=== PATIENT | female | born 1985 | race Caucasian/White ===

== ENCOUNTER 2019-08-13 12:13 | Emergency (ER) | payer OTHER ==
--- NOTE | 2019-08-13 13:05 | RAD ---
RIGHT ANKLE THREE VIEWS: 08/13/2019 HISTORY: Pain following a fall. FINDINGS: Talar dome and ankle mortise appear intact. No displaced fracture or dislocation is seen. Anterior an d lateral soft tissue swelling is noted. There is significant soft tissue swelling seen lateral to the cuboid bone as well. IMPRESSION: Anterior and lateral soft tissue swelling with no displaced fracture or evidence of dislocation seen. POS: [facility]
== END 2019-08-13 13:32 | disposition home or self-care (01) ==
LOC: MADERS 12:13
DX: S93.411A Sprain of calcaneofibular ligament of right ankle, initial encounter (principal); F17.210 Nicotine dependence, cigarettes, uncomplicated; W17.89XA Other fall from one level to another, initial encounter